=== PATIENT | male | born 1995 | race Caucasian/White ===

== ENCOUNTER 2020-05-14 11:13 | Emergency (ER) | payer OTHER ==
[~2020-05-14] VITALS: Ht 182.9 cm; Wt 76.0 kg
[2020-05-14 11:19] VITALS: BP 116/58
[2020-05-14] MEDS ORDERED: METH4TAB81 PO (11:41)
== END 2020-05-14 12:01 | disposition home or self-care (01) ==
LOC: ER 11:15
DX: L23.7 Allergic contact dermatitis due to plants, except food (principal); Z72.89 Other problems related to lifestyle; Z79.899 Other long term (current) drug therapy
CPT/HCPCS: 99283